=== PATIENT | female | born 1950 | race Caucasian/White ===

== ENCOUNTER → 2023-08-28 09:16 | Outpatient (REF) | payer MEDICARE, OTHER, SELFPAY ==
[2023-08-28 12:48] LABS: % Basophils 0.5 % (0-2); % Eosinophils 1.1 % (0-6); % Immature Granulocytes 0.3 % (0-0.5); % Lymphocytes 27.5 % (20.5-51.1); % Neutrophils 64.6 % (42.2-75.2); Absolute Eosinophils 0.1 10^3/uL (0-0.7); Absolute Lymphocytes 2.2 10^3/uL (1.2-3.4); Absolute Monocytes 0.5 10^3/uL (0.1-0.6); Absolute Neutrophils 5.1 10^3/uL (1.4-6.5); Hematocrit 43.1 % (37.0-47.0); Hemoglobin 14.5 g/dL (12.0-16.0); Mean Corp Hgb Conc. 33.6 g/dL (33.0-37.0); Mean Corpuscular Hgb 32.2 pg (27.0-31.0); Mean Corpuscular Volume 95.8 fL (81.0-99.0); Mean Platelet Volume 10.5 fL (7.4-10.4); Nucleated Red Blood Cells % 0 %; Platelet Count 301 10^3/uL (130-400); Red Cell Dist. Width 12.7 % (11.5-14.5); White Blood Cell Count 7.8 10^3/uL (4.8-10.8)
[2023-08-28 12:57] LABS: ALT (SGPT) 22 U/L (0-35); AST (SGOT) 24 U/L (14-36); Albumin 4.2 g/dl (3.5-5.0); Alkaline Phosphatase 76 U/L (38-126); Blood Urea Nitrogen 16 mg/dl (7-17); Calcium 9.3 mg/dl (8.4-10.2); Carbon Dioxide 31 mmol/L (22-30); Chloride 102 mmol/L (98-107); Glucose 144 mg/dl (70-99); HDL Cholesterol 72 mg/dl; LDL Cholesterol, Calculated 103 mg/dl; Sodium 137 mmol/L (135-145); Total Bilirubin 1.2 mg/dl (0.2-1.3); Total Cholesterol 216 mg/dl (50-199); Total Protein 7.3 g/dl (6.3-8.2); Triglyceride 205 mg/dl (10-149); Very Low Density Lipoprotein 41 mg/dl (0-30); eGFR > 60.00
[2023-08-28 13:27] LABS: TSH 0.81 uIU/ml (0.47-4.68)
[2023-08-28 13:31] LABS: Microalbumin, Random Urine 4.6 mg/dl (0.6-1.7)
[2023-08-28 14:10] LABS: Glycohemoglobin (HgbA1c) 7.1 % (4.0-5.6)
== END ==
LOC: HWLAB 09:16
PROVIDERS: ATTENDING PHYSICIAN Family Medicine
DX: K76.0 Fatty (change of) liver, not elsewhere classified (principal); E78.2 Mixed hyperlipidemia; I10 Essential (primary) hypertension; E11.9 Type 2 diabetes mellitus without complications
CPT/HCPCS: 36415; 80053; 80061; 82043; 82570; 83036; 84443; 85025

== ENCOUNTER → 2023-09-02 09:54 | Outpatient (REF) | payer MEDICARE, OTHER, SELFPAY | LOC: HWRAD 09:54 | PROVIDERS: ATTENDING PHYSICIAN Internal Medicine Endocrinology, Diabetes & Metabolism; FAMILY PHYSICIAN Family Medicine | DX: E04.2 Nontoxic multinodular goiter (principal) | CPT/HCPCS: 76536 ==

== ENCOUNTER → 2024-01-27 09:13 | Outpatient (REF) | payer MEDICARE, OTHER, SELFPAY ==
[2024-01-27 15:13] LABS: ALT (SGPT) 22 U/L (0-35); AST (SGOT) 27 U/L (14-36); Albumin 4.3 g/dl (3.5-5.0); Alkaline Phosphatase 80 U/L (38-126); Blood Urea Nitrogen 13 mg/dl (7-17); Calcium 9.8 mg/dl (8.4-10.2); Carbon Dioxide 30 mmol/L (22-30); Chloride 101 mmol/L (98-107); Glucose 149 mg/dl (70-99); HDL Cholesterol 74 mg/dl; LDL Cholesterol, Calculated 84 mg/dl; Potassium 4.4 mmol/L (3.5-5.1); Sodium 139 mmol/L (135-145); Total Bilirubin 0.9 mg/dl (0.2-1.3); Total Cholesterol 180 mg/dl (50-199); Total Protein 7.3 g/dl (6.3-8.2); Triglyceride 112 mg/dl (10-149); Very Low Density Lipoprotein 22 mg/dl (0-30); eGFR > 60.00
== END ==
LOC: HWLAB 09:13
PROVIDERS: ATTENDING PHYSICIAN Family Medicine
DX: E78.2 Mixed hyperlipidemia (principal); E11.9 Type 2 diabetes mellitus without complications
CPT/HCPCS: 36415; 80053; 80061; 83036

== ENCOUNTER → 2024-07-01 10:17 | Outpatient (REF) | payer MEDICARE, OTHER, SELFPAY ==
[2024-07-01 12:40] LABS: % Basophils 0.5 % (0-2); % Eosinophils 1.4 % (0-6); % Immature Granulocytes 0.1 % (0-0.5); % Lymphocytes 22.5 % (20.5-51.1); % Monocytes 6.5 % (1.7-9.3); Absolute Eosinophils 0.1 10^3/uL (0-0.7); Absolute Lymphocytes 1.8 10^3/uL (1.2-3.4); Absolute Monocytes 0.5 10^3/uL (0.1-0.6); Absolute Neutrophils 5.6 10^3/uL (1.4-6.5); Hematocrit 43.2 % (37.0-47.0); Hemoglobin 14.5 g/dL (12.0-16.0); Mean Corp Hgb Conc. 33.6 g/dL (33.0-37.0); Mean Corpuscular Hgb 32.1 pg (27.0-31.0); Mean Corpuscular Volume 95.6 fL (81.0-99.0); Mean Platelet Volume 10.2 fL (7.4-10.4); Nucleated Red Blood Cells % 0 %; Platelet Count 291 10^3/uL (130-400); Red Blood Cell Count 4.52 10^6/uL (4.20-5.40); Red Cell Dist. Width 12.4 % (11.5-14.5); White Blood Cell Count 8.1 10^3/uL (4.8-10.8)
[2024-07-01 12:50] LABS: ALT (SGPT) 19 U/L (0-35); AST (SGOT) 22 U/L (14-36); Albumin 4.2 g/dl (3.5-5.0); Alkaline Phosphatase 70 U/L (38-126); Blood Urea Nitrogen 17 mg/dl (7-17); Calcium 9.2 mg/dl (8.4-10.2); Carbon Dioxide 30 mmol/L (22-30); Chloride 100 mmol/L (98-107); Glucose 154 mg/dl (70-99); HDL Cholesterol 68 mg/dl; LDL Cholesterol, Calculated 103 mg/dl; Potassium 4.1 mmol/L (3.5-5.1); Sodium 140 mmol/L (135-145); Total Bilirubin 1.1 mg/dl (0.2-1.3); Total Cholesterol 189 mg/dl (50-199); Total Protein 7.2 g/dl (6.3-8.2); Triglyceride 93 mg/dl (10-149); Very Low Density Lipoprotein 18 mg/dl (0-30); eGFR > 60.00
[2024-07-01 13:42] LABS: Vitamin B12 356 pg/ml (239-931)
[2024-07-01 14:03] LABS: Microalbumin, Random Urine 6.1 mg/dl (0.6-1.7); Microalbumin/creatinine Ratio 19.7 mg/g
[2024-07-01 15:22] LABS: Glycohemoglobin (HgbA1c) 7.1 % (4.0-5.6)
[2024-07-01 20:45] LABS: Hepatitis C Antibody Negative (Negative)
== END ==
LOC: HWLAB 10:17
PROVIDERS: ATTENDING PHYSICIAN Family Medicine
DX: I10 Essential (primary) hypertension (principal); E78.2 Mixed hyperlipidemia; E53.8 Deficiency of other specified B group vitamins; E11.9 Type 2 diabetes mellitus without complications; E04.2 Nontoxic multinodular goiter; R79.9 Abnormal finding of blood chemistry, unspecified; Z01.89 Encounter for other specified special examinations; Z79.899 Other long term (current) drug therapy
CPT/HCPCS: 36415; 80053; 80061; 82043; 82570; 82607; 83036; 84443; 85025; 86803

== ENCOUNTER → 2024-07-14 10:40 | Outpatient (REF) | payer MEDICARE, OTHER, SELFPAY | LOC: HWWDC 10:40 | PROVIDERS: ATTENDING PHYSICIAN Family Medicine; REFERRING PHYSICIAN Obstetrics & Gynecology Gynecology | DX: Z12.31 Encounter for screening mammogram for malignant neoplasm of breast (principal) | CPT/HCPCS: 77063; 77067 ==

== ENCOUNTER → 2024-11-08 11:26 | Outpatient (REF) | payer MEDICARE, OTHER, SELFPAY ==
[2024-11-08 16:19] LABS: ALT (SGPT) 23 U/L (0-35); AST (SGOT) 21 U/L (14-36); Albumin 4.4 g/dl (3.5-5.0); Alkaline Phosphatase 58 U/L (38-126); Blood Urea Nitrogen 15 mg/dl (7-17); Calcium 9.4 mg/dl (8.4-10.2); Carbon Dioxide 30 mmol/L (22-30); Chloride 106 mmol/L (98-107); Glucose 151 mg/dl (70-99); Potassium 3.9 mmol/L (3.5-5.1); Sodium 142 mmol/L (135-145); Total Bilirubin 1.3 mg/dl (0.2-1.3); Total Protein 7.2 g/dl (6.3-8.2); eGFR > 60.00
[2024-11-08 17:07] LABS: Vitamin B12 976 pg/ml (239-931)
== END ==
LOC: HWLAB 11:26
PROVIDERS: ATTENDING PHYSICIAN Family Medicine; FAMILY PHYSICIAN Family Medicine
DX: E11.69 Type 2 diabetes mellitus with other specified complication (principal); R79.9 Abnormal finding of blood chemistry, unspecified; Z01.89 Encounter for other specified special examinations; Z79.899 Other long term (current) drug therapy
CPT/HCPCS: 36415; 80053; 82607; 83036

== ENCOUNTER 2025-03-30 06:34 | Inpatient (IN) | payer MEDICARE, OTHER, SELFPAY ==
--- NOTE | 2025-03-07 13:47 | CM ---
Addendum entered by Jalyn Gallegos RN 03/09/25 13:38:
Demographics: confirmed
Living situation: Lives alone, split level
Support Person Post Operatively: Son will stay with patient and brother will as well
History of
VN: No
SNF: No
Outpatient: Appointment not made, encouraged patient to make appointment for 04/01
Has patient purchased required equipment: yes
PCP: active
Pharmacy:[facility]
Post Operative Discharge Plan: Home with family and outpatient PT.
Original Note:
CM reviewed medical records. CM left message for IA. Awaiting return call.
[2025-03-21 11:22] LABS: Hematocrit 41.6 % (37.0-47.0); Hemoglobin 14.1 g/dL (12.0-16.0); Mean Corp Hgb Conc. 33.9 g/dL (33.0-37.0); Mean Corpuscular Volume 92.0 fL (81.0-99.0); Platelet Count 267 10^3/uL (130-400); Red Cell Dist. Width 12.1 % (11.5-14.5)
--- NOTE | 2025-03-21 11:41 | CM ---
CM reviewed medical records. CM was updated by orthopedic PA that patient is recommended for home PT/OT. CM left message for patient to discuss.
[2025-03-21 11:49] LABS: ALT (SGPT) 26 U/L (0-35); AST (SGOT) 26 U/L (14-36); Albumin 4.4 g/dl (3.5-5.0); Alkaline Phosphatase 70 U/L (38-126); Blood Urea Nitrogen 13 mg/dl (7-17); Calcium 9.5 mg/dl (8.4-10.2); Carbon Dioxide 30 mmol/L (22-30); Chloride 102 mmol/L (98-107); Glucose 159 mg/dl (70-99); Potassium 3.8 mmol/L (3.5-5.1); Sodium 139 mmol/L (135-145); Total Protein 7.4 g/dl (6.3-8.2); eGFR > 60.00
[2025-03-21 13:00] LABS: Glycohemoglobin (HgbA1c) 7.7 % (4.0-5.6)
--- NOTE | 2025-03-21 14:13 | PTCARENOTE ---
Abn ECG, Dr. Sanabria notified, no additional interventions required.
[2025-03-21 14:20] VITALS: BMI 34.6
[2025-03-21 16:28] VITALS: BMI 34.6
--- NOTE | 2025-03-22 09:29 | VNURNOTE ---
Addendum entered by Polly Wells RN 03/31/25 09:40:
Home Health Liaison met with patient at bedside to discuss [facility] nurse/therapy, visits, schedule and homebound status. Patient is agreeable and understands that visits at home will be 2-3 x per week to assess and teach medical management.
Patient is aware that [facility] will contact them for start of care in 1-2 days after discharge from . Provided contact number for [facility].
[facility] referral accepted in [facility].
Original Note:
chart reviewed. rec'ed message that pt will need home health PT, OT post op. Surgery scheduled for 03/30. [facility] referral placed in [facility]. Will follow up w/pt once admitted.
[2025-03-30] VITALS (28 sets, daily range): BP systolic 74–133; BP diastolic 39–87; PULSE 75; BMI 34.6
--- NOTE | 2025-03-30 07:29 | W.PN.UPDATE ---
Update Note
Progress Note Update
R knee OA s/p R TKA w/ Dr Garcia 03/30/25
DVT prophylaxis - ASA, b/l venous foot pumps
HTN - + parameters - monitor BP
NIDDM, A1c 7.7 - monitor BS
- Resume Metformin BID
- Add SSI AC and Lantus HS to accommodate for potential post-surgical BS elevations
- Diabetic, carb controlled diet
- Would benefit from Cefadroxil upon d/c
HLD
Tachycardia
Fatty liver disease
DDD w/ stenosis
Thyroid goiter
Insomnia
B12 deficiency
Obesity, BMI 34.6
[2025-03-30 08:12] LABS: Glucose - Point of Care 137 mg/dl (70-99)
[2025-03-30] MEDS: CELEBREX 200 MG PO (08:15)
[2025-03-30] MEDS: TYLENOL 650 MG PO ×4 (08:15→23:09)
[2025-03-30] MEDS: NORMOSOL-R/PLASMALYTE-A 1000 IV ×2 (08:15→12:20)
[2025-03-30 10:54] LABS: Glucose - Point of Care 174 mg/dl (70-99)
[2025-03-30 12:12] LABS: Glucose - Point of Care 153 mg/dl (70-99)
--- NOTE | 2025-03-30 13:00 | PTCARENOTE ---
1200 Pt arrived from PACU in bed. VSS. AAOX3. no complaints of pain. Neurovascular checks WNL. Primaseal dressing C/D/I. admission assessment complete. Oriented to room and call devries.
[2025-03-30] MEDS: NOVOLOG FLEXPEN-MODERATE RESISTANCE SC ×2 (15:09)
[2025-03-30] MEDS: VITAMIN D3 (cholecalciferol) PO (15:10)
[2025-03-30] MEDS: VITAMIN B-12 PO (15:10)
[2025-03-30] MEDS: ANCEF 5 IV ×2 (15:11→23:09)
[2025-03-30] MEDS: CRESTOR 5 MG PO (15:17)
[2025-03-30 17:03] LABS: Glucose - Point of Care 191 mg/dl (70-99)
[2025-03-30] MEDS: GLUCOPHAGE 500 MG PO (17:03)
[2025-03-30] MEDS: ASPIRIN 325 MG PO (17:03)
[2025-03-30] MEDS: ZETIA 10 MG PO (17:03)
[2025-03-30] MEDS: NOVOLOG FLEXPEN-MODERATE RESISTANCE 1 UNITS SC (17:04)
[2025-03-30] MEDS: SENOKOT PO (19:58)
[2025-03-30] MEDS: COLACE 100 MG PO (19:59)
[2025-03-30] MEDS: BACTROBAN 2% OINTMENT 1 APPLIC NASAL (19:59)
[2025-03-30 21:27] LABS: Glucose - Point of Care 171 mg/dl (70-99)
[2025-03-30] MEDS: NEURONTIN 300 MG PO (21:30)
[2025-03-30] MEDS: PEPCID 20 MG PO (21:30)
[2025-03-30] MEDS: LANTUS 0.05 UNITS SC (21:30)
[2025-03-30] MEDS: MELATONIN 5 MG PO (21:45)
[2025-03-31] MEDS: ROXICODONE 5 MG PO (01:23)
[2025-03-31] MEDS: TYLENOL 650 MG PO ×3 (03:00→12:29)
[2025-03-31 03:15] VITALS: BP 105/69
--- NOTE | 2025-03-31 07:39 | W.PN.UPDATE ---
Update Note
Progress Note Update
pt sleeping deeply, I did not waker her up on rounds.
[2025-03-31 07:50] VITALS: BP 97/67
[2025-03-31 07:53] LABS: Glucose - Point of Care 137 mg/dl (70-99)
[2025-03-31] MEDS: NOVOLOG FLEXPEN-MODERATE RESISTANCE SC ×2 (07:55→12:28)
[2025-03-31] MEDS: BACTROBAN 2% OINTMENT 1 APPLIC NASAL (09:11)
[2025-03-31] MEDS: VITAMIN D3 (cholecalciferol) 25 MCG PO (09:12)
[2025-03-31] MEDS: ASPIRIN 325 MG PO (09:12)
[2025-03-31] MEDS: SENOKOT 17.2 MG PO (09:12)
[2025-03-31] MEDS: GLUCOPHAGE 500 MG PO (09:12)
[2025-03-31] MEDS: COLACE 100 MG PO (09:13)
[2025-03-31] MEDS: VITAMIN B-12 1000 MCG PO (09:14)
[2025-03-31] MEDS: ROXICODONE 10 MG PO (09:24)
[2025-03-31 09:30] VITALS: BP 128/73
--- NOTE | 2025-03-31 10:05 | W.PN.ORTHO ---
Today's Communication / Plan
-
Await PT and OT recs.
D/c later today if remaining clinically stable.
Assessment
.
Distal Motor Intact: Yes
Dressing:
Clean, dry and intact.
Assessment:
R knee OA s/p R TKA w/ Dr Garcia 03/30/25
DVT prophylaxis - ASA, b/l venous foot pumps
HTN - + parameters - BPs stable overall
NIDDM, A1c 7.7 - BS readings overall stable w/ measures below
- Resumed Metformin BID
- Added SSI AC and Lantus HS to accommodate for potential post-surgical BS elevations
- Diabetic, carb controlled diet
- Would benefit from Cefadroxil upon d/c
HLD
Tachycardia
Fatty liver disease
DDD w/ stenosis
Thyroid goiter
Insomnia
B12 deficiency
Obesity, BMI 34.6
Plan
.
Surgery / Date: R TKA w/ Dr Garcia 03/30/25
DVT Prophylaxis: Aspirin
Activity:
Out of bed.
PT/OT
Discharge Plan: Home w/ VN
Subjective
.
.:
Patient examined resting in bed.
R knee pain 12/30. Initially resistant to taking Oxycodone but now agreeable. Will medicate.
Denies any other new significant complaints.
Eager for potential d/c today.
Vital Signs and Labs
.
Vital Signs and Labs:
Lab Results
03/21/25 10:18
03/21/25 10:18
Temp Pulse Resp BP Pulse Ox
97.9 F 85 16 128/73 97
03/31/25 07:50 03/31/25 09:30 03/31/25 07:50 03/31/25 09:30 03/31/25 07:50
Non-invasive Hgb result: 12.7
Physical Exam
-
HEENT: No pallor, cyanosis, or jaundice. Throat clear.
NECK: Supple. No JVD.
RESPIRATORY: Lungs clear to auscultation.
CVS: S1, S2 normal. RRR.�
ABDOMEN: Soft, non-tender. No distension. Obese.
EXTREMITIES: Expected post-surgical R knee edema. Strength equal, no calf pain with palpation/dorsiflexion. Calves soft.
SPEAR FISHER: AOx3. No focal deficits. manager in training grossly intact
--- NOTE | 2025-03-31 10:18 | W.DS.TRANS ---
DC Summary - [facility]
-
Discharge Instructions:
Sleep Apnea Risk Intermediate
Discharge Diagnosis/Procedures R knee OA s/p R TKA w/ Dr Garcia 03/30/25
Diet Diabetic, Carb Controlled
Additional Diets Adequate hydration, minimize opioids, and wear
TEDs stockings to prevent low blood pressure/
dizziness.
Activity With Walker,As tolerated
Driving Restrictions Not until seen by your Dr
Bathing Restrictions OK to Shower
Other Services VN,PT
Wound Care Dressing to be removed 1 week post-surgery.
Instructions:
Stand-Alone Forms: Total Hip/Knee Replacement D/C
Changes to Home Medications: Yes
Discharge Medications:
DC Medications w/original date entered in [employer]
B-12 1 dose PO DAILY Supplement 02/17/19
Co Q-10 100 mg PO DAILY Supplement 02/17/19
Held on 03/31/25. Instructions: Resume on 04/07/25.
Vitamin D3 1 dose PO DAILY Supplement 03/18/25
cranberry 1 dose PO DAILY Supplement 03/18/25
ezetimibe 10 mg tablet (Zetia) 10 mg PO QPM High Cholesterol 03/18/25
mupirocin 2 % topical ointment 1 applic topical BID infection prevention #1 tube 03/18/25
rosuvastatin 5 mg tablet 5 mg PO .2 TIMES A WEEK High Cholesterol 03/18/25
cefadroxil 500 mg capsule 500 mg PO BID infection prevention #14 caps 03/21/25
famotidine 20 mg tablet 20 mg PO HS GI prophylaxis #30 tabs 03/21/25
gabapentin 300 mg capsule 300 mg PO HS sleep/pain #10 caps 03/21/25
metformin 1,000 mg tablet 1,000 mg PO BID Diabetes #90 tabs 03/21/25
ondansetron 4 mg disintegrating tablet 4 mg PO Q6H PRN n/v #20 tabs 03/21/25
oxycodone 5 mg tablet 5 mg PO Q6H PRN 1 tab moderate pain, 2 tabs severe pain #30 tabs 03/21/25
Saccharomyces boulardii 250 mg capsule (Florastor) 250 mg PO BID #14 caps 03/31/25
acetaminophen 500 mg tablet (Tylenol Extra Strength) 1,000 mg (2 x 500 mg) PO Q6H pain #60 tabs 03/31/25
aspirin 325 mg tablet 325 mg PO DAILY #30 tabs 03/31/25
docusate sodium 100 mg capsule 100 mg PO BID #30 caps 03/31/25
lidocaine 4 % topical patch 2 patch topical DAILY #30 ea 03/31/25
lisinopril 20 mg-hydrochlorothiazide 12.5 mg tablet 2 tab PO DAILY Blood Pressure #1 tab 03/31/25
magnesium hydroxide 400 mg/5 mL oral suspension (Milk of Magnesia) 30 ml PO HS PRN constipation #3,780 mL 03/31/25
meloxicam 15 mg tablet 15 mg PO DAILY #14 tabs 03/31/25
sennosides 8.6 mg tablet (Rain-klever) 17.2 mg (2 x 8.6 mg) PO BID #30 tabs 03/31/25
verapamil 120 mg tablet,extended release 120 mg PO DAILY #1 tab 03/31/25
Home Medication Changes
cefadroxil 500 mg capsule 500 mg PO BID infection prevention #14 caps 03/21/25
famotidine 20 mg tablet 20 mg PO HS GI prophylaxis #30 tabs 03/21/25
gabapentin 300 mg capsule 300 mg PO HS sleep/pain #10 caps 03/21/25
ondansetron 4 mg disintegrating tablet 4 mg PO Q6H PRN n/v #20 tabs 03/21/25
oxycodone 5 mg tablet 5 mg PO Q6H PRN 1 tab moderate pain, 2 tabs severe pain #30 tabs 03/21/25
Saccharomyces boulardii 250 mg capsule (Florastor) 250 mg PO BID #14 caps 03/31/25
acetaminophen 500 mg tablet (Tylenol Extra Strength) 1,000 mg (2 x 500 mg) PO Q6H pain #60 tabs 03/31/25
aspirin 325 mg tablet 325 mg PO DAILY #30 tabs 03/31/25
docusate sodium 100 mg capsule 100 mg PO BID #30 caps 03/31/25
lidocaine 4 % topical patch 2 patch topical DAILY #30 ea 03/31/25
magnesium hydroxide 400 mg/5 mL oral suspension (Milk of Magnesia) 30 ml PO HS PRN constipation #3,780 mL 03/31/25
meloxicam 15 mg tablet 15 mg PO DAILY #14 tabs 03/31/25
sennosides 8.6 mg tablet (Rain-klever) 17.2 mg (2 x 8.6 mg) PO BID #30 tabs 03/31/25
Pending Results: No
[2025-03-31] MEDS: MOBIC 15 MG PO (10:40)
[2025-03-31] MEDS: LIDOCAINE 4% PATCH 2 PATCH TOPICAL (10:41)
[2025-03-31 11:15] VITALS: BP 114/77
[2025-03-31 12:16] VITALS: BP 114/77; PULSE 77; O2SAT 97
[2025-03-31 12:26] LABS: Glucose - Point of Care 119 mg/dl (70-99)
== END 2025-03-31 14:33 | disposition home health service (06) | DRG 470 ==
LOC: 2 SOUTH 06:34
PROVIDERS: ADMITTING PHYSICIAN Orthopaedic Surgery; FAMILY PHYSICIAN Family Medicine
PROC: 0SRC0J9 Replacement of Right Knee Joint with Synthetic Substitute, Cemented, Open Approach (ICD-10-PCS; 2025-03-30)
DX: M17.11 Unilateral primary osteoarthritis, right knee (principal); I10 Essential (primary) hypertension; E78.5 Hyperlipidemia, unspecified; Z68.34 Body mass index [BMI] 34.0-34.9, adult; E66.9 Obesity, unspecified; E11.9 Type 2 diabetes mellitus without complications; E53.8 Deficiency of other specified B group vitamins; M48.00 Spinal stenosis, site unspecified; G47.00 Insomnia, unspecified; K76.0 Fatty (change of) liver, not elsewhere classified; Z79.84 Long term (current) use of oral hypoglycemic drugs; Z79.82 Long term (current) use of aspirin
CPT/HCPCS: 36415; 73560; 80053; 82962; 83036; 85027; 87070; 93005; 97110; 97116; 97163; 97167; C1713; C1776